=== PATIENT | female | born 1985 | race Caucasian/White ===

== ENCOUNTER 2017-04-02 19:20 | Emergency (ER) | payer OTHER, MEDICAID ==
[~2017-04-02] VITALS: Ht 160 cm; Wt 68.0 kg
[~2017-04-02 19:20] MED LIST: AZITHROMYCIN 2250 MG; BENZONATATE100 MG; CIPROFLOXACIN500 M1 PO; NAPROSYN500 MG PO; PERCOCET 5-3251 EACH PO; PROPRANOLOL 20M20 MG; PYRIDIUM200 MG PO; ULTRAM 50MG TAB50 MG PO; VALIUM2 MG PO; VALIUM5 MG
[2017-04-02] MEDS ORDERED: PRILOSEC 10MG C10 MG (19:26)
[2017-04-02] MEDS ORDERED: CLONAZEPAM 0.50.5 M1 (19:26)
[2017-04-02 19:58] LABS: ABSOLUTE EOSINOPHILS 0.1 thou/uL (0.0-0.7); ABSOLUTE LYMPHOCYTES 2.1 thou/uL (0.8-5.3); ABSOLUTE MONOCYTES 0.7 thou/uL (0.0-1.2); ABSOLUTE NEUTROPHILS 4.9 thou/uL (1.6-8.1); BASOPHILS 0.5 %; EOSINOPHILS 1.1 %; HEMATOCRIT 38.9 % (37.0-47.0); HEMOGLOBIN 12.7 gm/dL (12.0-15.0); LYMPHOCYTES 27.1 %; MCH 25.4 pg (26.0-34.0); MCHC 32.5 g/dL (28.0-37.0); MONOCYTES 8.4 %; NUCLEATED RBCS 0 /100WBC; PLATELET COUNT* 346 thou/uL (150-400); POLYS 62.9 %; RBC 4.98 mil/uL (4.20-5.00); RDW-CV 18.9 % (10.5-14.5); WBC 7.8 thou/uL (4.0-11.0)
[2017-04-02 20:04] LABS: ANION GAP 11 mmol/L (7-16); BUN 11 mg/dL (7-18); CALCIUM 8.7 mg/dL (8.5-10.1); CHLORIDE 104 mmol/L (98-107); CO2 27 mmol/L (21-32); GLUCOSE 103 mg/dL (70-99); POTASSIUM 3.8 mmol/L (3.5-5.1); SODIUM 142 mmol/L (136-145)
[2017-04-02 20:12] LABS: TROPONIN-I LEVEL <0.06 ng/mL (<0.06)
[2017-04-02 20:54] LABS: INFLUENZA A ANTIGEN None Detected (None Detect); INFLUENZA B ANTIGEN None Detected (None Detect)
[2017-04-02 21:20] VITALS: BP 112/78
--- NOTE | 2017-04-03 12:00 | EKG ---
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 : 1985 Requested By: Jeanne Christianson Order Number: [id number] MD: Tanner Springer Measurements Intervals [place] Rate: 113 P: 71 NC: 177 QRS: 63 QRSD: 88 T: -13 QT: 325 QTc: 446 Interpretive Statements Sinus tachycardia Borderline T abnormalities, inferior leads No previous ECG available for comparison Electronically Signed On 04-03-2017 12:00:27 BROADCAST TECHNICIAN by Tanner Springer [email or web address] <ELECTRONICALLY SIGNED> By: Tanner Springer MD, [facility] 04/03/17 1200 1924 23 Tanner Springer MD, FACC /EPI
== END 2017-04-02 21:21 | disposition home or self-care (01) ==
LOC: M.ERS 19:20
PROVIDERS: Emergency Medicine
DX: R07.89 Other chest pain (principal); Z87.442 Personal history of urinary calculi; Z87.440 Personal history of urinary (tract) infections; Z90.710 Acquired absence of both cervix and uterus; Z88.5 Allergy status to narcotic agent

== ENCOUNTER 2020-06-22 20:30 | Emergency (ER) | payer OTHER, MEDICAID ==
[~2020-06-22] VITALS: Ht 160 cm; Wt 68.0 kg
[~2020-06-22 20:30] MED LIST changes: +CLONAZEPAM 0.50.5 M1; +PRILOSEC 10MG C10 MG
[2020-06-22] MEDS ORDERED: CYMBALTA30 MG PO (20:41)
[2020-06-22 21:00] LABS: ABSOLUTE BASOPHILS 0.1 thou/uL (0.0-0.2); ABSOLUTE EOSINOPHILS 0.2 thou/uL (0.0-0.7); ABSOLUTE LYMPHOCYTES 2.7 thou/uL (0.8-5.3); ABSOLUTE MONOCYTES 0.8 thou/uL (0.0-1.2); ABSOLUTE NEUTROPHILS 4.6 thou/uL (1.6-8.1); BASOPHILS 0.6 %; EOSINOPHILS 2.1 %; HEMATOCRIT 36.9 % (37.0-47.0); HEMOGLOBIN 12.3 gm/dL (12.0-15.0); LYMPHOCYTES 32.5 %; MCH 29.7 pg (26.0-34.0); MCHC 33.3 g/dL (28.0-37.0); MONOCYTES 9.3 %; MPV 7.7 fl. (7.2-11.1); NUCLEATED RBCS 0 /100WBC; PLATELET COUNT* 289 thou/uL (150-400); POLYS 55.5 %; RBC 4.15 mil/uL (4.20-5.00); RDW-CV 14.9 % (10.5-14.5); WBC 8.4 thou/uL (4.0-11.0)
[2020-06-22 21:09] LABS: CALCIUM 8.9 mg/dL (8.5-10.1); CREATININE 0.9 mg/dL (0.6-1.3); POTASSIUM 3.3 mmol/L (3.5-5.1)
[2020-06-22 21:13] LABS: ALBUMIN 3.4 g/dL (3.4-5.0); TOTAL BILIRUBIN 0.2 mg/dL (<0.1-1.0); TOTAL PROTEIN 7.6 g/dL (6.4-8.2)
[2020-06-22] MEDS ORDERED: PROAIR HFA8.5 GM INH ×2 (21:53→21:54)
[2020-06-22] MEDS ORDERED: TESSALON PERLE100 MG PO ×2 (21:53→21:54)
[2020-06-22] MEDS ORDERED: NAPROSYN500 MG PO ×2 (21:53→21:54)
[2020-06-22] MEDS ORDERED: VISTARIL 25 MG25 M1 PO ×2 (21:53→21:54)
[2020-06-22] MEDS ORDERED: PREDNISONE 20 M20 MG PO (21:56)
[2020-06-22 22:09] VITALS: BP 143/86
--- NOTE | 2020-06-24 10:22 | EKG ---
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
== END 2020-06-22 22:10 | disposition home or self-care (01) ==
LOC: M.ERS 20:30
PROVIDERS: Physician Assistant
DX: R07.89 Other chest pain (principal); M79.7 Fibromyalgia; Z98.890 Other specified postprocedural states; Z90.711 Acquired absence of uterus with remaining cervical stump

== ENCOUNTER 2020-08-27 15:34 | Emergency (ER) | payer OTHER, MEDICAID ==
[~2020-08-27] VITALS: Ht 165.1 cm; Wt 66.2 kg
[~2020-08-27 15:34] MED LIST changes: +CYMBALTA30 MG PO; +PREDNISONE 20 M20 MG PO; +PROAIR HFA8.5 GM INH; +TESSALON PERLE100 MG PO; +VISTARIL 25 MG25 M1 PO
[2020-08-27 18:06] LABS: ABSOLUTE BASOPHILS 0.1 thou/uL (0.0-0.2); ABSOLUTE LYMPHOCYTES 2.7 thou/uL (0.8-5.3); ABSOLUTE MONOCYTES 0.9 thou/uL (0.0-1.2); ABSOLUTE NEUTROPHILS 10.1 thou/uL (1.6-8.1); BASOPHILS 0.4 %; EOSINOPHILS 0.2 %; HEMATOCRIT 37.8 % (37.0-47.0); HEMOGLOBIN 13.1 gm/dL (12.0-15.0); LYMPHOCYTES 19.4 %; MCH 29.8 pg (26.0-34.0); MCHC 34.7 g/dL (28.0-37.0); MONOCYTES 6.4 %; MPV 7.9 fl. (7.2-11.1); NUCLEATED RBCS 0 /100WBC; PLATELET COUNT* 293 thou/uL (150-400); POLYS 73.6 %; RDW-CV 15.2 % (10.5-14.5); WBC 13.8 thou/uL (4.0-11.0)
[2020-08-27 18:17] LABS: CALCIUM 9.2 mg/dL (8.5-10.1); CREATININE 0.9 mg/dL (0.6-1.3); POTASSIUM 3.3 mmol/L (3.5-5.1)
[2020-08-27 18:21] LABS: ALBUMIN 3.4 g/dL (3.4-5.0); TOTAL BILIRUBIN 0.2 mg/dL (<0.1-1.0); TOTAL PROTEIN 7.6 g/dL (6.4-8.2)
[2020-08-27 19:05] VITALS: BP 120/72
--- NOTE | 2020-08-28 09:21 | EKG ---
[place] [address] ELECTROCARDIOGRAM REPORT Name: CALEBDIONNA L Room: [facility]#: [id number] Admission: 08/27/20 Attend Phys: Discharge: 08/27/20 Date of : 83 Date of Service: 08/27/20 1546 Report #: [id number] THIS REPORT FOR: //name// 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 : 1985 Requested By: Jim Callahan Order Number: [id number] MD: Reese Rayo Measurements Intervals [place] Rate: 87 P: 55 [place]: 137 QRS: 37 QRSD: 79 T: 86 QT: 369 QTc: 444 Interpretive Statements Sinus rhythm Borderline repolarization abnormality Minimal ST elevation, inferior leads Baseline wander in lead(s) I,aVR,V2,V3 Compared to ECG 06/22/2020 20:35:31 ST (T wave) deviation now present Electronically Signed On 08-28-2020 9:21:00 CDT by Reese Rayo [email or web address] <ELECTRONICALLY SIGNED> By: Reese Rayo MD, FACC 08/28/20 0921 1546 1546 Reese Rayo MD, FAC /EPI
--- NOTE | 2020-08-28 09:22 | EKG ---
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
== END 2020-08-27 19:06 | disposition home or self-care (01) ==
LOC: M.ERS 15:34
PROVIDERS: Emergency Medicine Emergency Medical Services
DX: J40 Bronchitis, not specified as acute or chronic (principal); Z98.890 Other specified postprocedural states; Z90.711 Acquired absence of uterus with remaining cervical stump; Z88.5 Allergy status to narcotic agent; Z79.899 Other long term (current) drug therapy

== ENCOUNTER 2021-03-20 21:23 | Emergency (ER) | payer OTHER, MEDICAID ==
[~2021-03-20] VITALS: Ht 160 cm; Wt 79.4 kg
[2021-03-20 22:10] LABS: ABSOLUTE BASOPHILS 0.1 thou/uL (0.0-0.2); ABSOLUTE EOSINOPHILS 0.2 thou/uL (0.0-0.7); ABSOLUTE LYMPHOCYTES 2.5 thou/uL (0.8-5.3); ABSOLUTE MONOCYTES 0.5 thou/uL (0.0-1.2); ABSOLUTE NEUTROPHILS 4.7 thou/uL (1.6-8.1); BASOPHILS 0.7 %; HEMATOCRIT 37.4 % (37.0-47.0); HEMOGLOBIN 12.5 gm/dL (12.0-15.0); LYMPHOCYTES 31.8 %; MCH 28.8 pg (26.0-34.0); MCHC 33.4 g/dL (28.0-37.0); MCV 86.3 fL (80.0-100.0); MONOCYTES 6.4 %; MPV 7.4 fl. (7.2-11.1); NUCLEATED RBCS 0 /100WBC; PLATELET COUNT* 294 thou/uL (150-400); POLYS 59.1 %; RBC 4.33 mil/uL (4.20-5.00); RDW-CV 15.4 % (10.5-14.5); WBC 7.9 thou/uL (4.0-11.0)
[2021-03-20 22:19] LABS: CREATININE 0.7 mg/dL (0.6-1.3); POTASSIUM 3.1 mmol/L (3.5-5.1)
[2021-03-20 22:21] LABS: URINE BILIRUBIN NEGATIVE (Negative); URINE BLOOD NEGATIVE (Negative); URINE CLARITY CLEAR; URINE COLOR YELLOW; URINE GLUCOSE-RANDOM NEGATIVE (Negative); URINE KETONES NEGATIVE (Negative); URINE LEUKOCYTES-REFLEX NEGATIVE (Negative); URINE NITRITE-REFLEX NEGATIVE (Negative); URINE PROTEIN NEGATIVE (Negative); URINE UROBILINOGEN 0.2 E.U./dl (0.2-1.0)
[2021-03-20 22:24] LABS: ALBUMIN 3.9 g/dL (3.4-5.0); TOTAL BILIRUBIN 0.1 mg/dL (<0.1-1.0); TOTAL PROTEIN 7.8 g/dL (6.4-8.2)
[2021-03-20] MEDS ORDERED: ZPAK PO (23:01)
[2021-03-20] MEDS ORDERED: MEDROLDOSEPACK PO (23:01)
[2021-03-20] MEDS ORDERED: HYDROCODON-ACE1 EAC8 PO (23:34)
[2021-03-20 23:51] VITALS: BP 137/97
--- NOTE | 2021-03-21 11:25 | EKG ---
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
== END 2021-03-20 23:50 | disposition home or self-care (01) ==
LOC: M.ERS 21:23
PROVIDERS: Emergency Medicine; Physician Assistant
DX: R09.1 Pleurisy (principal); R19.7 Diarrhea, unspecified; M54.6 Pain in thoracic spine; J02.9 Acute pharyngitis, unspecified; M79.7 Fibromyalgia; Z87.442 Personal history of urinary calculi; Z98.890 Other specified postprocedural states; Z90.710 Acquired absence of both cervix and uterus; Z79.899 Other long term (current) drug therapy; Z88.8 Allergy status to other drugs, medicaments and biological substances